=== PATIENT | female | born 1965 | race Caucasian/White ===

== ENCOUNTER 2017-08-27 23:43 | Emergency (ER) | payer MEDICAID ==
[~2017-08-27] VITALS: Ht 160 cm; Wt 63.5 kg
[~2017-08-27 23:43] MED LIST: ACYCLOVIR 800800 M1 PO; AUGMENTIN 875875 MG PO; BACTRIM DS TAB1 EACH PO; CIPRO500 MG PO; CLEOCIN HCL150 MG PO; FLAGYL500 MG PO; HYDROCODONE-AP1 EAC6 PO; IBUPROFEN 600600 M1 PO; IBUPROFEN 800800 M1 PO; LIDOCAINE VISC100 M1 SWISH&SPIT; MACROBID 100 M100 M3 PO; NOHOMEMEDICATIONS; NORCO 5-325 TA1 EACH PO; PENICILLIN V P500 MG PO; PENICILLIN VK500 M1 PO; ULTRAM 50MG TAB50 MG PO; VICOPROFEN 2001 EACH PO
[2017-08-28 00:42] LABS: URINE BILIRUBIN NEGATIVE (Negative); URINE BLOOD NEGATIVE (Negative); URINE CLARITY CLEAR; URINE COLOR YELLOW; URINE GLUCOSE-RANDOM NEGATIVE (Negative); URINE KETONES NEGATIVE (Negative); URINE LEUKOCYTES 3+ (Negative); URINE NITRITE NEGATIVE (Negative); URINE PROTEIN TRACE (Negative); URINE SPECIFIC GRAVITY 1.025 (1.005-1.030); URINE UROBILINOGEN 0.2 E.U./dl (0.2-1.0)
[2017-08-28] MEDS ORDERED: FLAGYL500 MG PO (00:50)
[2017-08-28 01:12] LABS: SQUAMOUS 4-10 Moderate /LPF (0-3)
[2017-08-28 01:13] LABS: CRYSTALS None Seen /LPF (None Seen); MUCUS 4-6 Moderate strn/LPF (None Seen); URINE RBC 0-2 Rare /HPF (0-2)
[2017-08-28 01:17] LABS: HYALINE CASTS 0-3 Few /LPF (None Seen)
[2017-08-28 01:50] VITALS: BP 113/79
== END 2017-08-28 01:52 | disposition home or self-care (01) ==
LOC: M.ERS 23:43
PROVIDERS: Physician Assistant
DX: N76.0 Acute vaginitis (principal); B75 Trichinellosis; F17.210 Nicotine dependence, cigarettes, uncomplicated

== ENCOUNTER 2017-09-02 18:19 | Emergency (ER) | payer OTHER, MEDICAID ==
[~2017-09-02] VITALS: Ht 160 cm; Wt 63.5 kg
[2017-09-02 18:23] VITALS: BP 132/87
[2017-09-02] MEDS ORDERED: FLAGYL500 MG PO (18:42)
== END 2017-09-02 18:51 | disposition home or self-care (01) ==
LOC: M.ERS 18:19
DX: N76.0 Acute vaginitis (principal); F17.210 Nicotine dependence, cigarettes, uncomplicated

== ENCOUNTER 2018-02-28 11:57 | Emergency (ER) | payer OTHER, MEDICAID ==
[~2018-02-28] VITALS: Ht 160 cm; Wt 59.0 kg
[2018-02-28 12:56] VITALS: BP 129/82
== END 2018-02-28 12:50 | disposition home or self-care (01) ==
LOC: M.ERS 11:57
DX: S93.492A Sprain of other ligament of left ankle, initial encounter (principal); S80.02XA Contusion of left knee, initial encounter; F17.210 Nicotine dependence, cigarettes, uncomplicated; Z98.890 Other specified postprocedural states; V49.69XA Unspecified car occupant injured in collision with other motor vehicles in traffic accident, initial encounter; Y93.89 Activity, other specified; Y92.89 Other specified places as the place of occurrence of the external cause; Y99.8 Other external cause status

== ENCOUNTER 2018-04-13 15:00 | Emergency (ER) | payer OTHER, MEDICAID ==
[~2018-04-13] VITALS: Ht 160 cm; Wt 65.8 kg
[2018-04-13 15:06] VITALS: BP 151/94
[2018-04-13] MEDS ORDERED: LIDOCAINE VISC100 ML SWISH&SPIT (15:14)
[2018-04-13] MEDS ORDERED: AMOXICILLIN 50500 MG PO (15:14)
[2018-04-13] MEDS ORDERED: ACETAMINOPHEN-1 EAC1 PO (15:14)
== END 2018-04-13 15:25 | disposition home or self-care (01) ==
LOC: M.ERS 15:00
DX: K08.89 Other specified disorders of teeth and supporting structures (principal); F17.210 Nicotine dependence, cigarettes, uncomplicated

== ENCOUNTER 2020-02-27 11:29 | Emergency (ER) | payer OTHER ==
[~2020-02-27] VITALS: Ht 160 cm; Wt 65.8 kg
[~2020-02-27 11:29] MED LIST changes: +ACETAMINOPHEN-1 EAC1 PO; +AMOXICILLIN 50500 MG PO; +LIDOCAINE VISC100 ML SWISH&SPIT
[2020-02-27 12:09] LABS: URINE BILIRUBIN NEGATIVE (Negative); URINE BLOOD NEGATIVE (Negative); URINE CLARITY CLEAR; URINE COLOR YELLOW; URINE GLUCOSE-RANDOM NEGATIVE (Negative); URINE KETONES NEGATIVE (Negative); URINE LEUKOCYTES-REFLEX NEGATIVE (Negative); URINE NITRITE-REFLEX NEGATIVE (Negative); URINE PROTEIN NEGATIVE (Negative); URINE SPECIFIC GRAVITY >= 1.030 (1.005-1.030); URINE UROBILINOGEN 0.2 E.U./dl (0.2-1.0)
[2020-02-27 12:45] VITALS: BP 134/85
== END 2020-02-27 12:45 | disposition home or self-care (01) ==
LOC: M.ERS 11:29
PROVIDERS: Emergency Medicine Emergency Medical Services
DX: N89.8 Other specified noninflammatory disorders of vagina (principal); F17.210 Nicotine dependence, cigarettes, uncomplicated; Z98.51 Tubal ligation status